=== PATIENT | female | born 1975 | race Caucasian/White ===

== ENCOUNTER → 2016-07-17 | Outpatient (CLI) | payer BC ==
--- NOTE | 2016-07-20 14:43 | CT ---
EXAM DATE: 07/17/16 PATIENT'S AGE: 40 Patient: MILLIE PALENCIA Facility: [place], [place] Site . Site : 1975 Study: CT Abdomen/Pelvis 23040001-6/5/2017 4:35:38 PM Ordering Physician: Glendy Carter Final Report: INDICATION: Left-sided flank pain, history of stones. TECHNIQUE: CT abdomen and pelvis without i.v. contrast. Coronal and sagittal reformats were obtained. COMPARISON: CT study dated 04/13/2013. FINDINGS: Lower chest: Unremarkable. Liver: Unremarkable. Spleen: Unremarkable. Pancreas: Unremarkable. Gallbladder and bile ducts: Gallbladder surgically absent. No abnormal biliary dilatation. Kidneys: Numerous bilateral renal calculi. , indicating possible medullary nephrocalcinosis. No hydronephrosis. Ureters are normal in caliber. No ureteral calculus identified with clinical history of left flank pain. Adrenal glands: Normal. GI tract: Unremarkable. The appendix is normal in appearance and size. Vascular: Limited evaluation of the mesenteric vessels without IV contrast. Abdominal aorta normal in caliber. Lymph nodes: Unremarkable. Miscellaneous: Unremarkable. No pneumoperitoneum is seen. No significant ascites is noted. Pelvic Organs: Unremarkable. Bones: Unremarkable for age. IMPRESSION: 1. Bilateral renal calculi without evidence of hydronephrosis or associated ureteral calculi with clinical history of left flank pain. 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 2. Normal appendix. Dictated by Kenji Ramirez MD @ 07/17/2016 4:53:01 PM Dictated by: Kenji Ramirez MD @ 07/17/2016 16:53:13 (Electronic Signature) Report Signed by Proxy. [facility] MEDICAL CENTERAnjali
== END ==
LOC: MW.CHFP 15:15
PROVIDERS: ATTEND Family Medicine
DX: R10.9 Unspecified abdominal pain (principal); Z87.442 Personal history of urinary calculi
CPT/HCPCS: 74176; 74176-26; 81001; 87086

== ENCOUNTER → 2016-07-31 | Outpatient (CLI) | payer BC | LOC: MW.CHUR 11:39 | PROVIDERS: ATTEND Urology | DX: R10.9 Unspecified abdominal pain (principal) | CPT/HCPCS: 81001 ==

== ENCOUNTER 2017-02-18 09:43 | Day surgery (SDC) | payer BC ==
[~2017-02-18 09:43] MED LIST: Iopamidol 408 MG/ML 50 ML SDV ONE; Lactated Ringers 1,000 ML IV SCH; Sodium Chloride 0.9% 10 ML Syringe FLUSH PRN; Sodium Chloride 0.9% 2.5 ML Syringe FLUSH PRN
--- NOTE | 2017-02-18 10:30 | PCM.PREANE ---
Preanesthetic Assessment - Procedure Proposed Procedure: ESWL - Anesthesia/Transfusion/Family Hx Anesthesia History: Prior Anesthesia Without Reaction Family History of Anesthesia Reaction: No Transfusion History: No Prior Transfusion(s) Intubation History: Unknown Additional History: 7.0 OET for anesthesia when she had a stone a few years ago. - Review of Systems General: No Symptoms Pulmonary: No Symptoms, Other (asthma by hx) Cardiovascular: No Symptoms Gastrointestinal: Abdominal Pain (probably the stone in the urerter), Other ( occasional heartburn) Neurological: No Symptoms Other: Reports: None - Physical Assessment NPO Status Date: 02/17/17 NPO Status Time: 23:00 O2 Sat by Pulse Oximetry: 97 Respiratory Rate: 16 Vital Signs: Last Vital Signs Temp 97.9 F 02/18/17 10:15 Pulse 81 02/18/17 10:15 Resp 16 02/18/17 10:15 BP 121/72 02/18/17 10:15 Pulse Ox 97 02/18/17 10:15 Height: 5 ft 7 in Weight: 167 lb ASA Class: 2 Mental Status: Alert & Oriented x3 Airway Class: Mallampati = 2 Dentition: Reports: Normal Dentition Thyro-Mental Finger Breadths: 3 Mouth Opening Finger Breadths: 3 ROM/Head Extension: Full Lungs: Clear to Auscultation, Normal Respiratory Effort Cardiovascular: Regular Rate, Regular Rhythm, No Murmurs - Lab Values: Laboratory Last Values Urine HCG, Qual NEGATIVE (NEGATIVE) 02/18/17 09:46 - Allergies Allergies/Adverse Reactions: Allergies Allergy/AdvReac Type Severity Reaction Status Date / Time No Known Allergies Allergy Verified 02/16/17 10:20 - Blood Blood Available: No Product(s) Available: None - Acknowledgements Anesthesia Type Planned: General Anesthesia (LMA vs OET) Pt an Appropriate Candidate for the Planned Anesthesia: Yes Alternatives and Risks of Anesthesia Discussed w Pt/Guardian: Yes Pt/Guardian Understands and Agrees with Anesthesia Plan: Yes PreAnesthesia Questionnaire Respiratory History: Reports: Asthma Other Respiratory History: exercises induced asthma...has not used an inhaler for years Gastrointestinal History: Reports: Chronic Diarrhea, GERD, Irritable Bowel Syndrome Genitourinary History: Reports: Renal Calculus 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 History: Reports: Endometriosis Musculoskeletal History: Reports: Arthritis, Fracture Other Musculoskeletal History: hx of fx toe and arm Psychiatric History: Reports: Anxiety Dermatologic History: Reports: Other (See Below) Other Dermatologic History: currently has a rash on ankles and wrists - Past Surgical History GI Surgical History: Reports: Cholecystectomy Female Surgical History: Reports: Lithotripsy/ESWL, Other (See Below) Other Female Surgeries/Procedures: exploratory laparotomy for endometriosis - SUBSTANCE USE Smoking Status *Q: Current Some Day Smoker Tobacco Use Within Last Twelve Months: Cigarettes Days Per Week of Alcohol Use: 1 Number of Drinks Per Day: 4 Total Drinks Per Week: 4 Recreational Drug Use History: No - HOME MEDS Home Medications: Home Meds Diclofenac Sodium [Voltaren] 50 mg PO BID 02/16/17 [History] Ketorolac [Toradol] 10 mg PO ASDIRECTED PRN 02/16/17 [History] - CURRENT (IN HOUSE) MEDS Current Meds: Current Medications Lactated Ringer's (Ringers, Lactated) 1,000 mls @ 100 mls/hr IV ASDIRECTED [place] Last Admin: 02/18/17 10:14 Dose: 100 mls/hr Sodium Chloride (Saline Flush) 10 ml FLUSH ASDIRECTED PRN PRN Reason: Keep Vein Open Sodium Chloride (Saline Flush) 2.5 ml FLUSH ASDIRECTED PRN PRN Reason: Keep Vein Open Discontinued Medications Iopamidol (Isovue-200 (41%)) Confirm Administered Dose 50 ml .ROUTE .STK-MED ONE Stop: 02/18/17 07:42
[2017-02-18] MEDS ORDERED: Lidocaine 2% 5 ML SDV ONE (11:37)
[2017-02-18] MEDS ORDERED: fentaNYL 100 MCG/2 ML SDV ONE (11:37)
[2017-02-18] MEDS ORDERED: Propofol 200 MG/20 ML SDV ONE ×2 (11:37→12:31)
[2017-02-18] MEDS ORDERED: Midazolam 1 MG/ML 2 ML SDV ONE (11:37)
[2017-02-18] MEDS ORDERED: Ketorolac 30 MG/ML SDV ONE (11:38)
[2017-02-18] MEDS ORDERED: Neostigmine Methylsulfate 1 MG/ML 5 ML Syringe ONE (11:38)
[2017-02-18] MEDS ORDERED: Ondansetron 4 MG/2 ML SDV ONE (11:38)
[2017-02-18] MEDS ORDERED: Rocuronium 10 MG/ML 10 ML Syringe ONE (11:38)
[2017-02-18] MEDS ORDERED: fentaNYL 100 MCG/2 ML SDV IVPUSH PRN (13:05)
--- NOTE | 2017-02-18 13:42 | PCM.POSTAN ---
POST ANESTHESIA ASSESSMENT - MENTAL STATUS Mental Status: Alert, Oriented - RESPIRATORY Respiratory Status: Respiratory Rate WNL, Airway Patent, O2 Saturation Stable - CARDIOVASCULAR CV Status: Pulse Rate WNL, Blood Pressure Stable - GASTROINTESTINAL GI Status: No Symptoms - POST OP HYDRATION Hydration Status: Adequate & Stable
--- NOTE | 2017-02-18 13:43 | OR ---
SURGEON: Misha Parr M.D. DATE OF PROCEDURE: 02/18/2017 PREOPERATIVE DIAGNOSIS: Left renal pelvis stones. POSTOPERATIVE DIAGNOSIS: Left renal pelvis stones. PROCEDURE: Extracorporeal shock wave lithotripsy. DESCRIPTION OF PROCEDURE: The patient was given general anesthesia, placed on the lithotripsy table. The position of the patient was adjusted so the stone could be treated. The larger stone was treated first that was about 6 mm in the mid pole of the left kidney that received a total of 1400 shocks monitoring the progress along the way and that appeared to result in satisfactory fragmentation of the stone. The smaller stone which was about 3 mm in the upper pole of the left kidney was then treated next and that also broke up nicely. With that done, the procedure was terminated and the patient was moved to recovery room in good condition. BAKARI / IBRAHIMA /[id number]
--- NOTE | 2017-02-18 13:48 | PCM48HPAN ---
Post Anesthesia Note - EVALUATION WITHIN 48HRS OF ANESTHETIC Patient Participated in Evaluation: Yes Respiratory Function Stable: Yes Airway Patent: Yes Cardiovascular Function Stable: Yes Hydration Status Stable: Yes Pain Control Satisfactory: Yes Nausea and Vomiting Control Satisfactory: Yes Mental Status Recovered: Yes
[2017-02-18 15:38] VITALS: BP 109/82
== END 2017-02-18 14:30 | disposition home or self-care (01) ==
LOC: MW.SDS 09:43
PROVIDERS: ATTEND Urology
DX: N20.0 Calculus of kidney (principal); J45.990 Exercise induced bronchospasm; F17.210 Nicotine dependence, cigarettes, uncomplicated; M19.90 Unspecified osteoarthritis, unspecified site; Z91.018 Allergy to other foods; Z90.49 Acquired absence of other specified parts of digestive tract; Z98.890 Other specified postprocedural states
CPT/HCPCS: 50590; 81025; J1885; J2250; J2405; J3010; J7120; Q9966; 00873; J2704

== ENCOUNTER 2022-08-26 09:24 | Emergency (ER) | payer BC ==
[2022-08-26 10:14] LABS: APPEARANCE,URINE SLT CLOUDY; BILIRUBIN,URINE NEGATIVE (NEGATIVE); COLOR,URINE YELLOW; GLUCOSE,URINE NEGATIVE (NEGATIVE); KETONES,URINE NEGATIVE (NEGATIVE); LEUKOCYTE ESTERASE,URINE TRACE (NEGATIVE); NITRITE,URINE NEGATIVE (NEGATIVE); OCCULT BLOOD,URINE TRACE-INTACT (NEGATIVE); PH,URINE 6.5 (5.0-8.0); PROTEIN,URINE NEGATIVE (NEGATIVE); UROBILINOGEN,URINE 0.2 EU/dL (<2.0)
[2022-08-26] MEDS ORDERED: Sodium Chloride 0.9% 1,000 ML IV ONE (10:45)
[2022-08-26] MEDS ORDERED: Ketorolac 30 MG/ML SDV IVPUSH ONE (10:46)
[2022-08-26] MEDS ORDERED: Ondansetron 4 MG/2 ML SDV IVPUSH ONE (10:46)
[2022-08-26 11:05] LABS: BACTERIA,URINE 2+ (NEGATIVE); EPITHELIAL CELLS,URINE FEW (NONE-FEW); RBC,URINE 0-2 (0-2/HPF)
[2022-08-26 11:13] LABS: BASOPHILS ABSOLUTE AUTO 0.1 K/uL (0.0-0.1); BASOPHILS PERCENT AUTO 0.8 % (0.0-1.5); EOSINOPHILS ABSOLUTE AUTO 0.1 K/uL (0.0-0.7); EOSINOPHILS PERCENT AUTO 1.2 % (0.0-7.0); HEMATOCRIT 38.3 % (36.0-46.0); HEMOGLOBIN 13.1 g/dL (12.0-16.0); LYMPHOCYTES ABSOLUTE AUTO 1.3 K/uL (0.6-2.4); LYMPHOCYTES PERCENT AUTO 14.8 % (16.0-40.0); MEAN CORPUSCULAR HEMOGLOBIN 33.1 pg (27.0-32.0); MEAN CORPUSCULAR HGB CONC 34.2 g/dL (31.0-37.0); MEAN CORPUSCULAR VOLUME 96.7 fL (80.0-98.0); NEUTROPHILS PERCENT AUTO 71.2 % (48.0-80.0); NRBC ABSOLUTE 0 K/uL; PLATELET COUNT,PLT 293 K/uL (150-400); RED BLOOD CELL COUNT 3.96 M/uL (4.30-5.90); WHITE BLOOD CELL COUNT,WBC 8.49 K/uL (4.0-11.0)
[2022-08-26 11:40] LABS: A/G RATIO 0.7 (0.9-1.6); ALBUMIN 3.2 g/dL (3.4-5.0); BILIRUBIN TOTAL 0.2 mg/dL (0.2-1.0); CALCIUM 9.2 mg/dL (8.5-10.1); CARBON DIOXIDE,CO2 25.4 mmol/L (21.0-32.0); CREATININE 0.7 mg/dL (0.6-1.0); EST CRCL DRUG DOSING (CG) 98.69 mL/min; PROTEIN TOTAL,TP 7.8 g/dL (6.4-8.2)
[2022-08-26 13:34] VITALS: BP 123/77; PULSE 90
== END 2022-08-26 13:34 | disposition home or self-care (01) ==
LOC: MW.ED 09:24
DX: N20.0 Calculus of kidney (principal); N30.01 Acute cystitis with hematuria; J45.909 Unspecified asthma, uncomplicated; Z87.891 Personal history of nicotine dependence
CPT/HCPCS: 36415; 74176; 80053; 81001; 81025; 85025; 96361; 96374; 96375; 99284; J1885; J2405; J7030

== ENCOUNTER 2023-06-02 09:29 | Day surgery (SDC) | payer BC ==
[~2023-06-02 09:29] MED LIST changes: -Iopamidol 408 MG/ML 50 ML SDV ONE; -Lactated Ringers 1,000 ML IV SCH; -Sodium Chloride 0.9% 10 ML Syringe FLUSH PRN; -Sodium Chloride 0.9% 2.5 ML Syringe FLUSH PRN; +ceFAZolin 2 GM in Sodium Chloride 0.9% 50 ML IV ONE
[2023-06-02] MEDS ORDERED: Propofol 200 MG/20 ML SDV ONE (11:00)
[2023-06-02] MEDS ORDERED: propofoL 50 ML ONE (11:00)
[2023-06-02] MEDS ORDERED: fentaNYL 250 MCG/5 ML SDV ONE (11:00)
[2023-06-02] MEDS: Lactated Ringers 1,000 ML IV SCH (11:27)
[2023-06-02] MEDS ORDERED: Metoclopramide 10 MG/2 ML SDV IVPUSH PRN (11:34)
[2023-06-02] MEDS ORDERED: droPERidol 5 MG/2 ML SDV IVPUSH PRN (11:34)
[2023-06-02] MEDS ORDERED: Ondansetron 4 MG/2 ML SDV IVPUSH PRN (11:34)
[2023-06-02] MEDS ORDERED: Naloxone 0.4 MG/ML SDV IVPUSH PRN (11:34)
[2023-06-02] MEDS ORDERED: Albuterol 0.083% 2.5 MG/3 ML Neb Soln NEB PRN (11:34)
[2023-06-02] MEDS ORDERED: HYDROmorphone 1 MG/ML Syringe IVPUSH PRN (11:34)
[2023-06-02] MEDS ORDERED: fentaNYL 50 MCG/ML SDV IVPUSH PRN (11:34)
[2023-06-02] MEDS ORDERED: Morphine 2 MG/ML SYRINGE IVPUSH PRN (11:34)
[2023-06-02] MEDS ORDERED: Bupivacaine 0.5%/EPINEPHrine 1:200,000 30 ML SDV ONE (11:41)
[2023-06-02] MEDS ORDERED: ceFAZolin 2 GM Vial ONE (12:38)
[2023-06-02] MEDS ORDERED: Dexamethasone 4 MG/ML 5 ML MDV ONE (12:38)
[2023-06-02] MEDS ORDERED: Ketorolac 30 MG/ML SDV ONE (12:38)
[2023-06-02] MEDS ORDERED: Ondansetron 4 MG/2 ML SDV ONE (12:38)
[2023-06-02 14:53] VITALS: BP 118/72; PULSE 63
== END 2023-06-02 14:05 | disposition home or self-care (01) ==
LOC: MW.SDS 09:29
PROVIDERS: ATTEND Orthopaedic Surgery
DX: M89.9 Disorder of bone, unspecified (principal); M94.9 Disorder of cartilage, unspecified; F41.9 Anxiety disorder, unspecified; K21.9 Gastro-esophageal reflux disease without esophagitis; J45.909 Unspecified asthma, uncomplicated; Z87.891 Personal history of nicotine dependence; Z79.899 Other long term (current) drug therapy
CPT/HCPCS: 29877; 81025; J0131; J0690; J1100; J1885; J2405; J2704; J3010; J7120; 01400; J3490